=== PATIENT | female | born 1980 | race Two or more races ===

== ENCOUNTER 2019-12-19 11:42 | Emergency (ER) | payer MEDICAID, SELFPAY ==
[~2019-12-19] VITALS: Ht 160 cm; Wt 77.6 kg
[2019-12-19 11:43] VITALS: BP 135/90
== END 2019-12-19 13:03 | disposition home or self-care (01) ==
LOC: ED 12:11
DX: J02.8 Acute pharyngitis due to other specified organisms (principal); B97.89 Other viral agents as the cause of diseases classified elsewhere
CPT/HCPCS: 87081; 87880; 99283

== ENCOUNTER 2020-02-26 22:45 | Emergency (ER) | payer MEDICAID ==
[~2020-02-26] VITALS: Ht 160 cm; Wt 78.7 kg
[2020-02-26 22:46] VITALS: BP 146/110
--- NOTE | 2020-02-26 23:14 | NUR ---
THIS IS A 39Y F THAT COMES IN FOR SWELLING AND PAIN WORSENING OVER DAYS. PT DENIES TRAUMA OR VISION CHANGES.
--- NOTE | 2020-02-26 23:31 | NUR ---
MD AT BEDSIDE TO ASSESS PT
== END 2020-02-26 23:54 | disposition home or self-care (01) ==
LOC: ED 23:01
DX: H00.015 Hordeolum externum left lower eyelid (principal); F17.290 Nicotine dependence, other tobacco product, uncomplicated
CPT/HCPCS: 99283

== ENCOUNTER 2020-03-12 12:37 | Emergency (ER) | payer MEDICAID ==
[~2020-03-12] VITALS: Ht 160 cm; Wt 78.6 kg
[2020-03-12 12:43] VITALS: BP 139/86
--- NOTE | 2020-03-12 14:25 | NUR ---
No answer when pt called for room from lobby.
--- NOTE | 2020-03-12 14:57 | NUR ---
No answer when pt called to room from lobby.
--- NOTE | 2020-03-12 15:13 | NUR ---
NO ANSWER WHEN CALLED FOR REPEAT VITALS AT [id number]
== END 2020-03-12 15:17 | disposition left against medical advice (07) ==
LOC: ED 15:06
DX: H00.016 Hordeolum externum left eye, unspecified eyelid (principal); Z53.21 Procedure and treatment not carried out due to patient leaving prior to being seen by health care provider

== ENCOUNTER 2021-03-21 08:03 | Emergency (ER) | payer MEDICAID ==
[~2021-03-21] VITALS: Ht 160 cm; Wt 85.2 kg
--- NOTE | 2021-03-21 08:20 | NUR ---
PA AT BS
[2021-03-21] MEDS ORDERED: KETOROLAC 30 MG/1 ML ONE (08:40)
[2021-03-21] MEDS ORDERED: DIPHENHYDRAMINE 50 MG/ML, 1ML ONE (08:40)
[2021-03-21] MEDS ORDERED: METOCLOPRAMIDE 5 MG/ML, 2ML ONE (08:40)
[2021-03-21] MEDS ORDERED: DIPHENHYDRAMINE 50 MG/ML, 1ML IVPush ONE (09:00)
[2021-03-21] MEDS ORDERED: METOCLOPRAMIDE 5 MG/ML, 2ML IVPush ONE (09:00)
[2021-03-21] MEDS ORDERED: SODIUM CHLORIDE 0.9% 1,000ML IVBOLUS ONE (09:00)
[2021-03-21] MEDS ORDERED: KETOROLAC 30 MG/1 ML IVPush ONE (09:00)
--- NOTE | 2021-03-21 09:03 | NUR ---
PT RESTING ON AGATHA FIERRO/THELMA. CALL LIGHT WITHIN REACH. IVF INFUSING. NO NEEDS AT THIS TIME
[2021-03-21 09:36] VITALS: BP 141/81
--- NOTE | 2021-03-21 09:58 | NUR ---
Patient given discharge instructions and RX, they have confirmed that they understand the instructions. Patient ambulatory with steady gait.
== END 2021-03-21 09:59 | disposition home or self-care (01) ==
LOC: ED 08:42
DX: J06.9 Acute upper respiratory infection, unspecified (principal); R06.02 Shortness of breath; B34.9 Viral infection, unspecified; Z20.822 Contact with and (suspected) exposure to COVID-19
CPT/HCPCS: 71045; 96361; 96374; 96375; 99284; J1200; J1885; J2765; J7030; U0003; U0005

== ENCOUNTER 2021-05-13 20:12 | Emergency (ER) | payer MEDICAID ==
[~2021-05-13] VITALS: Ht 160 cm; Wt 86.9 kg
[2021-05-13 20:20] VITALS: BP 139/95
--- NOTE | 2021-05-13 21:12 | NUR ---
called in the lobby, no answer
--- NOTE | 2021-05-13 21:30 | NUR ---
called in the lobby, no answer
--- NOTE | 2021-05-13 22:00 | NUR ---
called in the lobby, no answer
== END 2021-05-13 22:20 | disposition left against medical advice (07) ==
LOC: ED 21:00
DX: R50.9 Fever, unspecified (principal); Z53.21 Procedure and treatment not carried out due to patient leaving prior to being seen by health care provider